=== PATIENT | female | born 1990 | race Caucasian/White ===

== ENCOUNTER 2019-01-11 17:53 | Emergency (ER) | payer SELFPAY ==
[2019-01-11] MEDS ORDERED: Ondansetron PF 4 MG/2 ML Vial ONE (18:14)
[2019-01-11 18:36] LABS: #Basophils 0.1 thou/uL (0.0-0.2); #Eosinphils 0.2 thou/uL (0.0-0.7); #Lymphocytes 1.7 thou/uL (1.20-3.40); #Monocytes 0.3 thou/uL (0.11-0.59); #Neutrophils 5.3 thou/uL (1.40-6.50); %Basophils 0.8 % (0.0-1.0); %Eosinophils 2.4 % (0.0-10.0); %Monocytes 3.4 % (0.0-10.0); %Neutrophils 70.4 % (42.0-75.0); Hemoglobin 14.3 g/dL (12.0-16.0); Mean Corpuscular HGB CONC 35.1 g/dL (32.0-36.0); Mean Corpuscular Hemoglobin 32.3 pg (27.0-31.0); Platelet Count 388 thou/uL (130-400); RBC Distribution Width 11.2 % (11.5-14.5); Red Blood Cell (RBC) Count 4.43 mill/uL (4.20-5.40); White Blood Cell (WBC) Count 7.5 thou/uL (4.8-10.8)
[2019-01-11 19:17] LABS: Albumin 4.8 g/dL (3.5-5.0)
[2019-01-11 19:18] LABS: Chloride 96 mmol/L (98-107); Sodium 132 mmol/L (136-145)
[2019-01-11 19:19] LABS: Calcium 10.2 mg/dL (7.8-10.44); Glucose 180 mg/dL (70-105)
[2019-01-11 19:20] LABS: Globulin 3.2 g/dL (2.4-3.5)
[2019-01-11 19:21] LABS: Anion Gap 17 mmol/L (10-20); Bilirubin, Total 1.2 mg/dL (0.2-1.2); Carbon Dioxide 22 mmol/L (22-29)
[2019-01-11 19:22] LABS: Alkaline Phosphatase 60 U/L (40-150)
[2019-01-11 19:23] LABS: BUN (Urea Nitrogen) 8 mg/dL (7.0-18.7); Calc. Creatinine Clearance 0 mL/min (70-130); Estimated GFR-MDRD Greater than 90
[2019-01-11 19:25] LABS: ALT (SGPT) 87 U/L (8-55); AST (SGOT) 71 U/L (5-34); Lipase 31 U/L (8-78)
[2019-01-11 20:20] LABS: Bilirubin Negative (Negative); Blood, Urine Negative (Negative); Clarity CLOUDY (Clear); Glucose, Urine (Dipstick) Negative (Negative); Leukocyte Small (Negative); Nitrite Negative (Negative); Protein, Urine (Dipstick) Negative (Neg-Trace); Specific Gravity, Urine 1.004 (1.002-1.036)
[2019-01-11 20:23] LABS: Pregnancy Test - Urine (BHCG) Negative (Negative); Pregu Control Background? CLEAR/WHITE (CLR/WHITE); Pregu Control Bar Appear? YES (CONTROL BAR); Specific Gravity 1.004 (1.002-1.036)
[2019-01-11 20:24] LABS: Bacteria/HPF 1+ HPF (None Seen); Pathc Cast-AUWi Flag 1.59 (0-2.49)
[2019-01-11 20:34] LABS: RBC/HPF 0-3 HPF (0-3)
[2019-01-11 20:36] LABS: Hyaline Casts/LPF NONE SEEN LPF (0-3 Hyaline)
[2019-01-14 23:57] LABS: Chlamydia by PCR DETECTED (NotDetected); GC by PCR Not Detected (NotDetected)
== END 2019-01-11 21:23 | disposition home or self-care (01) ==
LOC: ERS 17:53
DX: N89.8 Other specified noninflammatory disorders of vagina (principal); R10.32 Left lower quadrant pain; E11.9 Type 2 diabetes mellitus without complications; E03.9 Hypothyroidism, unspecified; I10 Essential (primary) hypertension; F17.210 Nicotine dependence, cigarettes, uncomplicated; Z79.84 Long term (current) use of oral hypoglycemic drugs; Z71.6 Tobacco abuse counseling; Z79.899 Other long term (current) drug therapy
CPT/HCPCS: 80053; 81003; 81015; 81025; 83690; 85025; 87086; 87480; 87491; 87510; 87591; 87660; 96361; 96374; 99406; J2405

== ENCOUNTER 2019-07-08 16:13 | Emergency (ER) | payer BC ==
[2019-07-08 16:53] LABS: #Basophils 0.1 thou/uL (0.0-0.2); #Eosinphils 0.4 thou/uL (0.0-0.7); #Monocytes 0.6 thou/uL (0.11-0.59); %Basophils 1.4 % (0.0-1.0); %Eosinophils 4.3 % (0.0-10.0); %Lymphocytes 39.1 % (21.0-51.0); %Monocytes 5.9 % (0.0-10.0); %Neutrophils 49.4 % (42.0-75.0); Hemoglobin 13.9 g/dL (12.0-16.0); Mean Corpuscular HGB CONC 34.7 g/dL (32.0-36.0); Mean Corpuscular Hemoglobin 32.9 pg (27.0-31.0); Mean Corpuscular Volume 94.7 fL (78.0-98.0); Mean Platelet Volume 6.5 fL (7.4-10.4); Platelet Count 450 thou/uL (130-400); RBC Distribution Width 11.8 % (11.5-14.5); Red Blood Cell (RBC) Count 4.23 mill/uL (4.20-5.40); White Blood Cell (WBC) Count 10.1 thou/uL (4.8-10.8)
[2019-07-08 16:57] LABS: Bilirubin Negative (Negative); Blood, Urine Negative (Negative); Glucose, Urine (Dipstick) 50 mg/dL (Negative); Leukocyte 250 Leu/uL (Negative); Nitrite Negative (Negative); Protein, Urine (Dipstick) 30 mg/dL (Neg-Trace); Urobilinogen Normal mg/dL (Less than 2)
[2019-07-08 16:58] LABS: Pregnancy Test - Urine (BHCG) Negative (Negative); Pregu Control Background? CLEAR/WHITE (CLR/WHITE); Pregu Control Bar Appear? YES (CONTROL BAR); Specific Gravity 1.033 (1.002-1.036)
[2019-07-08 17:00] LABS: Clarity Cloudy (Clear)
[2019-07-08 17:01] LABS: Bacteria/HPF 2+ HPF (None Seen); Sperm/HPF None Seen HPF (None Seen); Yeast-Budding None Seen HPF (None Seen)
[2019-07-08 17:16] LABS: ALT (SGPT) 26 U/L (8-55); AST (SGOT) 16 U/L (5-34); Albumin 4.5 g/dL (3.5-5.0); Alkaline Phosphatase 61 U/L (40-150); Anion Gap 15 mmol/L (10-20); BUN (Urea Nitrogen) 13 mg/dL (7.0-18.7); Bilirubin, Total 0.3 mg/dL (0.2-1.2); Calc. Creatinine Clearance 0 mL/min (70-130); Calcium 9.5 mg/dL (7.8-10.44); Carbon Dioxide 20 mmol/L (22-29); Chloride 104 mmol/L (98-107); Estimated GFR-MDRD Greater than 90; Globulin 3.3 g/dL (2.4-3.5); Glucose 192 mg/dL (70-105); Lipase 47 U/L (8-78); Potassium 3.5 mmol/L (3.5-5.1); Protein, Total 7.8 g/dL (6.0-8.3); Sodium 135 mmol/L (136-145)
--- NOTE | 2019-07-08 17:41 | ULT ---
US Gallbladder RUQ History: Abdominal pain Comparison: None. Findings: Real-time grayscale and color evaluation of the right upper quadrant of the abdomen was per formed. Visualized portion of the pancreas is unremarkable. Diffuse increased hepatic echotexture without mas s. Liver measures 20 cm in length. No intrahepatic or extra hepatic biliary dilatation. Portal vein is p atent with antegrade flow. Common bile duct measures 2 mm, normal. Cholelithiasis without cholecystitis. Normal gallbladder wall thickness. No pericholecystic fluid. Right kidney measures 11.3 x 4.5 x 5.6 cm without mass, hydronephrosis, or abnormal calcifications di d sonographic Vizcaino sign is negative. Impression: Cholelithiasis without cholecystitis. Diffuse hepatic steatosis and hepatomegaly.
== END 2019-07-08 19:18 | disposition home or self-care (01) ==
LOC: ERS 16:13
DX: K80.20 Calculus of gallbladder without cholecystitis without obstruction (principal); L30.9 Dermatitis, unspecified; E11.9 Type 2 diabetes mellitus without complications; E03.9 Hypothyroidism, unspecified; I10 Essential (primary) hypertension; F17.210 Nicotine dependence, cigarettes, uncomplicated; Z79.84 Long term (current) use of oral hypoglycemic drugs; Z79.899 Other long term (current) drug therapy
CPT/HCPCS: 36415; 76705; 80053; 81003; 81015; 81025; 83690; 85025; 93005